=== PATIENT | male | born 1985 | race Caucasian/White ===

== ENCOUNTER 2017-09-22 08:33 | Emergency (ER) | payer OTHER ==
[~2017-09-22] VITALS: Ht 177.8 cm; Wt 102.1 kg
[2017-09-22 08:36] VITALS: Ht 177.8 cm; Wt 102.1 kg
--- NOTE | 2017-09-22 09:29 | ERD ---
ER Documentation Chief Complaint Chief Complaint Pt presents with L knee since last night, injured while playing football. HPI This is a 32-year-old male presents emergency department today complaining of left knee pain and swelling after an injury last night. Patient states he was playing football when he went to jump up to catch the ball and he hyperextended his knee when he came down and landed he felt like his knee shifted and it was "out of place". States that he rolled over and it went back into place. States that he took a Vicodin last night but it made him sick. States he took 800 mg of ibuprofen this morning. States he has crutches that he brought from his brother. States he does have previous trauma of a knee sprain in this knee many years ago when he was playing football as well. ROS All systems reviewed and are negative except as per history of present illness. Medications Home Meds Active Scripts Acetaminophen* (Tylophen*) 500 Mg Capsule, 1 CAP PO Q6H Y for PAIN AND OR ELEVATED TEMP, #30 CAP Prov:SUZAN OVIEDO PA-C 09/22/17 Naproxen* (Naprosyn*) 500 Mg Tablet, 500 MG PO BID Y for PAIN AND/OR INFLAMMATION, #30 TAB Prov:SUZAN OVIEDO PA-C 09/22/17 Allergies Allergies: Coded Allergies: No Known Allergy (Unverified , 02/20/15) PMhx/Soc Medical and Surgical Hx: pt denies Medical Hx, pt denies Surgical Hx History of Surgery: No Anesthesia Reaction: No Hx Neurological Disorder: No Hx Respiratory Disorders: No Hx Cardiac Disorders: No Hx Psychiatric Problems: No Hx Miscellaneous Medical Probl: No Hx Alcohol Use: Yes (soacial drinker) Hx Substance Use: Yes (Marijuana) Hx Tobacco Use: No Smoking Status: Never smoker Physical Exam Vitals Vital Signs Date Time Temp Pulse Resp B/P Pulse Ox O2 Delivery O2 Flow Rate FiO2 09/22/17 08:36 97.5 78 16 131/66 98 Physical Exam Const: NAD Head: Atraumatic Eyes: Normal Conjunctiva ENT: Normal External Ears, Nose and Mouth. Neck: Full range of motion..~ No meningismus. Resp: Clear to auscultation bilaterally Cardio: Regular rate and rhythm, no murmurs Abd: Soft, non tender, non distended. Normal bowel sounds Skin: No petechiae or rashes MSk: Left knee with no obvious deformity. Moderate effusion. Tenderness palpation along medial border of patella and medial joint line. Full active range of motion with pain. Distal pulses 2+. Good cap refill. Neur: Awake and alert Psych: Normal Mood and Affect Results 24 hrs DIAGNOSTIC IMAGING REPORT Patient: JOHNATHON RAMIREZ : 1985 Age: 32 Sex: M MR #: [id number] DOS: 09/22/17 0000 Ordering MD: SUZAN OVIEDO PA-C Location: [facility] Room/Bed: PROCEDURE: US Lower Extremity, Arterial. CLINICAL INDICATION: Pain. Trauma. TECHNIQUE: Multiple longitudinal and transverse images of the bilateral lower extremity arteries were obtained with pickard scale and color Doppler imaging while at rest. COMPARISON: None. FINDINGS: Location Right (cm/s) Left (cm/s) VALVE STEAMER 84 80 PSFA 87 74 MSFA 65 78 DSFA 54 62 POP 48 44 SNOW RANGER 65 62 DPA 36 19 TALITA 1.25 1.25 Normal triphasic waveforms are seen throughout the bilateral lower extremity arteries. IMPRESSION: Normal bilateral lower extremity arterial ultrasound. No evidence of hemodynamically significant stenosis or occlusion of the bilateral lower extremity arteries. RPTAT: KK .Kacey Rivas MD, Date Time Electronically viewed and signed by .Kacey Rivas MD, MD on 09/22/2017 10:35 .T/ CC: SUZAN OVIEDO PA-C DIAGNOSTIC IMAGING REPORT Patient: JOHNATHON RAMIREZ : 1985 Age: 32 Sex: M MR #: [id number] DOS: 09/22/17 0000 Ordering MD: SUZAN OVIEDO PA-C Location: [facility] Room/Bed: PROCEDURE: XR Knee. CLINICAL INDICATION: Trauma with pain. TECHNIQUE: Left knee, three views. COMPARISON: None. FINDINGS: The bone mineralization is age appropriate. There is no acute fracture or dislocation. Osseous alignment appears maintained. There is no significant joint space narrowing. There are no significant degenerative changes. There is a moderate knee joint effusion. IMPRESSION: 1. No acute fracture or dislocation of the left knee. 2. Moderate knee joint effusion. If there is concern for internal derangement, MRI is recommended. RPTAT: AAEE Kofi Carroll Physician Date Time Electronically viewed and signed by Kofi Carroll Physician on 09/22/2017 10:43 PH/ CC: SUZAN OVIEDO PA-C Procedures/MDM This is a 32-year-old male who presents the emergency department today complaining of left knee pain and swelling after he injured it last night while playing football. Patient describes a patella dislocation versus knee dislocation versus subluxation therefore I did obtain laboratory workup as well as a arterial ultrasound Per the radiology report images of the left knee show no acute fracture dislocation. There is a moderate knee joint effusion. Arterial ultrasound shows normal bilateral lower extremity arterial ultrasound. There is no evidence of hemodynamically significant stenosis or occlusion of the bilateral lower external arteries. Patient symptoms at this time is consistent with sprain versus strain however I do have some concern for internal derangement of the knee given that he does have an effusion as well as the mechanism of injury. I have explained this to the patient. Patient had already taken ibuprofen here in the emergency department. I did give the patient a knee immobilizer. Distal neurovascularly intact pre-and post splint application. He also already had crutches. I did explain to the patient that he would need referral from his primary care doctor for referral to insurance specialist for further evaluation and management as I suspect the patient has internal derangement of the knee. Patient does have an HMO plan. Patient will be given a prescription for Naprosyn, Tylenol for home. At this time the patient is stable for discharge and outpatient management. Patient should follow up with their PCP in the next 1-2 days. They may return to the emergency department sooner for any persistent or worsening of symptoms. Patient understood and agreed with the plan. Departure Diagnosis: Primary Impression: Knee injury Encounter type: initial encounter Laterality: left Qualified Code: S89.92XA - Injury of left knee, initial encounter Condition: SUZAN Casillas PA-C Sep 22, 2017 09:29
--- NOTE | 2017-09-22 10:36 | RADRPT ---
PROCEDURE: US Lower Extremity, Arterial. CLINICAL INDICATION: Pain. Trauma. TECHNIQUE: Multiple longitudinal and transverse images of the bilateral lower extremity arteries w ere obtained with pickard scale and color Doppler imaging while at rest. COMPARISON: None. FINDINGS: Location Right (cm/s)Left (cm/s) CFA84 80 PSFA87 74 MSFA65 78 DSFA54 62 POP48 44 PTA65 62 DPA36 19 [id number] Normal triphasic waveforms are seen throughout the bilateral lower extremity arteries. IMPRESSION: Normal bilateral lower extremity arterial ultrasound. No evidence of hemodynamically significant laina nosis or occlusion of the bilateral lower extremity arteries. RPTAT: KK .Kacey Rivas MD, MD Date Time Electronically viewed and signed by .Kacey Rivas MD, MD on 09/22/2017 10:35 .T/
--- NOTE | 2017-09-22 10:43 | RADRPT ---
PROCEDURE: XR Knee. CLINICAL INDICATION: Trauma with pain. TECHNIQUE: Left knee, three views. COMPARISON: None. FINDINGS: The bone mineralization is age appropriate. There is no acute fracture or dislocation. Osseous alignment appears maintained. There is no significant joint space narrowing. There are no significant degenerative changes. There is a moderate knee joint effusion. IMPRESSION: 1. No acute fracture or dislocation of the left knee. 2. Moderate knee joint effusion. If there is concern for internal derangement, MRI is recommended. RPTAT: AAEE Kofi Carroll Physician Date Time Electronically viewed and signed by Kofi Carroll Physician on 09/22/2017 10:43 PH/
[2017-09-22] MEDS ORDERED: NAPR-260 PO (10:59)
[2017-09-22] MEDS ORDERED: ACET500C5 PO (10:59)
== END 2017-09-22 11:32 | disposition home or self-care (01) ==
LOC: FTE 08:33
DX: S89.92XA Unspecified injury of left lower leg, initial encounter (principal); X50.9XXA Other and unspecified overexertion or strenuous movements or postures, initial encounter; Y92.9 Unspecified place or not applicable
CPT/HCPCS: 73562; 93922